=== PATIENT | female | born 1980 | race African-American/Black ===

== ENCOUNTER 2020-02-22 17:12 | Emergency (ER) | payer OTHER ==
[~2020-02-22] VITALS: Ht 157.5 cm; Wt 81.6 kg
[2020-02-22 18:30] VITALS: BP 133/70; TEMP 97.5
== END 2020-02-22 18:30 | disposition home or self-care (01) ==
LOC: ED 17:35
DX: G43.909 Migraine, unspecified, not intractable, without status migrainosus (principal)
CPT/HCPCS: 96372; 99283; J1200; J1885; J2405